=== PATIENT | male | born 1950 | race African-American/Black ===

== ENCOUNTER 2019-09-25 10:38 | Inpatient (IN) | payer BC, MEDICAID ==
[~2019-09-25] VITALS: Ht 177.8 cm; Wt 102.1 kg
[2019-09-25 11:05] VITALS: BP 126/88
--- NOTE | 2019-09-25 11:05 | NUR ---
ED Nurse Note: Pt walked into ED from home c/o right groin pain that has become worse in the past month. Pt has hx of right sided hernia repair in 2018 and prostate surgery in may, 2019. Pt states pain is 10/10, sharp in nature and nonradiating. Pt also reports increased urination and incontience. Pt states "he drips urine when he walks". Pt is aaox4, ambulatory with steady gait, no respiratory or cardiac distress noted. Pt placed on desk monitor. Safety measures in place, will continue to monitor.
--- NOTE | 2019-09-25 11:30 | NUR ---
ED Nurse Note: Pt blood and urine specimen sent to lab.
[2019-09-25 11:44] LABS: BASOPHILS % (AUTO) 0.9 % (0.0-2.0); HEMATOCRIT 42.7 % (42.0-52.0); HEMOGLOBIN 13.4 G/DL (14.2-18.0); LYMPHOCYTES % (AUTO) 16.1 % (20.0-45.0); MEAN CORPUSCULAR VOLUME 89 FL (80-99); MONOCYTES % (AUTO) 7.1 % (1.0-10.0); NEUTROPHILS % (AUTO) 69.9 % (45.0-75.0); PLATELET COUNT 210 K/UL (150-450); RED BLOOD COUNT 4.82 M/UL (4.70-6.10); WHITE BLOOD COUNT 4.2 K/UL (4.8-10.8)
[2019-09-25 11:45] LABS: APPEARANCE,URINE CLEAR; BILIRUBIN, URINE NEGATIVE (NEGATIVE); COLOR,URINE YELLOW; GLUCOSE, URINE (UA) NEGATIVE (NEGATIVE); KETONES,URINE NEGATIVE (NEGATIVE); LEUKOCYTE ESTERASE ,URINE 1+ (NEGATIVE); NITRITE,URINE NEGATIVE (NEGATIVE); PH,URINE 5 (4.5-8.0); PROTEIN,URINE NEGATIVE (NEGATIVE); UROBILINOGEN,URINE 4 MG/DL (0.0-1.0)
--- NOTE | 2019-09-25 11:45 | NUR ---
ED Nurse Note: Patient taken to CT scan in wheelchair accompanied by transporter.
[2019-09-25 11:51] LABS: INR 0.9 (0.9-1.1)
[2019-09-25 12:00] LABS: ANION GAP 5 mmol/L (5-15); BLOOD UREA NITROGEN 23 mg/dL (7-18); CALCIUM 9.1 MG/DL (8.5-10.1); CARBON DIOXIDE 31 MMOL/L (21-32); CHLORIDE 104 MMOL/L (98-107); CREATININE 0.8 MG/DL (0.55-1.30); POTASSIUM 4.4 MMOL/L (3.5-5.1); SODIUM 139 MMOL/L (136-145)
[2019-09-25 12:04] LABS: ALANINE AMINOTRANSFERASE 34 U/L (12-78); ALBUMIN 3.7 G/DL (3.4-5.0); ALKALINE PHOSPHATASE 150 U/L (46-116); ASPARTATE AMINO TRANSFERASE 23 U/L (15-37); BILIRUBIN,TOTAL 0.7 MG/DL (0.2-1.0)
--- NOTE | 2019-09-25 12:18 | NUR ---
ED Nurse Note: [facility] returned to ED. [facility].
--- NOTE | 2019-09-25 12:30 | NUR ---
ED Nurse Note: Spoke with pharmacist at pt [facility] as listed on chart. Attempted to obtain pt medication hx. Pharmacist dictated medications listed in chart, but pt states he takes more medication than what is noted.
[2019-09-25] MEDS ORDERED: OMEGA-3 ACID ETH1 GM PO (12:46)
[2019-09-25] MEDS ORDERED: ABILIFY10 MG ORAL (12:46)
[2019-09-25] MEDS ORDERED: IBUPROFEN600 MG ORAL (12:53)
[2019-09-25] MEDS ORDERED: FLOMAX0.4 MG ORAL (12:53)
[2019-09-25] MEDS ORDERED: MIRTAZAPINE15 M3 ORAL (12:53)
--- NOTE | 2019-09-25 13:33 | NUR ---
ED Nurse Note: Report given to SOFIA Serrato.
--- NOTE | 2019-09-25 13:46 | Emergency Room Report ---
History of Present Illness General Chief Complaint: General Complaint Source: Patient Present Illness HPI Patient has a history of multiple surgeries including prostate surgery and inguinal hernia repair. Patient returns to the emergency department today complaining of worsening abdominal pain has progressively become over the last week. He denies any nausea vomiting denies any fever chest pain shortness of breath. No other complaints are noted. Seems noted to be moderate to severe. Patient's primary care physician is Dr. Edward Broderick advised patient come to emergency room primary for further evaluation. Symptoms noted to be moderate. No other modifying factors. No other associated signs and symptoms. No other complaints were noted. 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 Hx Gastrointestinal Problems: Yes - hernia repair surgery, prostate surgery Review of Systems All Other Systems: negative except mentioned in HPI Physical Exam Vital Signs Date Time Temp Pulse Resp B/P (MAP) Pulse Ox O2 Delivery O2 Flow Rate FiO2 09/25/19 10:45 97.3 58 20 126/88 (101) 95 Room Air Sp02 EP Interpretation: reviewed, normal General Appearance: normal inspection, well appearing, no apparent distress, alert Head: atraumatic Eyes: bilateral eye normal inspection ENT: normal ENT inspection, hearing grossly normal, normal voice Neck: normal inspection, full range of motion, supple, no bony tend Respiratory: normal inspection, lungs clear, normal breath sounds, no respiratory distress, no retraction, no wheezing Cardiovascular #1: regular rate, rhythm, no edema Gastrointestinal: normal inspection, normal bowel sounds, non tender, soft, no guarding, no hernia Genitourinary: no CVA tenderness Musculoskeletal: normal inspection, back normal, normal range of motion Neurologic: alert, responsive, speech normal, normal inspection Psychiatric: normal inspection, judgement/insight normal, mood/affect normal Medical Decision Making Diagnostic Impression: Primary Impression: Abdominal pain Additional Impression: Ileitis ER Course Patient presented emergency department today complaining of abdominal pain. Differential diagnosis include obstruction, infection, nonspecific pain just to name a few.. Given the severity of the patient's presentation I felt this is a highly complex patient. This patient required extensive workup. Patient's laboratory work-up was not impressive. CT scan however show evidence of ileitis. Given patient's pain complicated history I discussed this case with Dr. Broderick He felt the patient required admission for monitoring, repeated exams. Will admit the patient to Dr. Broderick service for further management. The Labs Test 09/25/19 11:25 White Blood Count 4.2 K/UL (4.8-10.8) Red Blood Count 4.82 M/UL (4.70-6.10) Hemoglobin 13.4 G/DL (14.2-18.0) Hematocrit 42.7 % (42.0-52.0) Mean Corpuscular Volume 89 FL (80-99) Mean Corpuscular Hemoglobin 27.9 PG (27.0-31.0) Mean Corpuscular Hemoglobin Concent 31.5 G/DL (32.0-36.0) Red Cell Distribution Width 12.0 % (11.6-14.8) Platelet Count 210 K/UL (150-450) Mean Platelet Volume 7.8 FL (6.5-10.1) Neutrophils (%) (Auto) 69.9 % (45.0-75.0) Lymphocytes (%) (Auto) 16.1 % (20.0-45.0) Monocytes (%) (Auto) 7.1 % (1.0-10.0) Eosinophils (%) (Auto) 6.0 % (0.0-3.0) Basophils (%) (Auto) 0.9 % (0.0-2.0) Prothrombin Time 9.8 SEC (9.30-11.50) Prothromb Time International Ratio 0.9 (0.9-1.1) Activated Partial Thromboplast Time 26 SEC (23-33) Urine Color Yellow Urine Appearance Clear Urine pH 5 (4.5-8.0) Urine Specific [place] 1.020 (1.005-1.035) Urine Protein Negative (NEGATIVE) Urine Glucose (UA) Negative (NEGATIVE) Urine Ketones Negative (NEGATIVE) Urine Blood Negative (NEGATIVE) Urine Nitrite Negative (NEGATIVE) Urine Bilirubin Negative (NEGATIVE) Urine Urobilinogen 4 MG/DL (0.0-1.0) Urine Leukocyte Esterase 1+ (NEGATIVE) Urine RBC 0 /HPF (0 - 0) Urine WBC 2-4 /HPF (0 - 0) Urine Squamous Epithelial Cells Occasional /LPF Urine Bacteria Occasional /HPF (NONE) Urine Mucus Occasional /LPF Sodium Level 139 MMOL/L (136-145) Potassium Level 4.4 MMOL/L (3.5-5.1) Chloride Level 104 MMOL/L (98-107) Carbon Dioxide Level 31 MMOL/L (21-32) Anion Gap 5 mmol/L (5-15) Blood Urea Nitrogen 23 mg/dL (7-18) Creatinine 0.8 MG/DL (0.55-1.30) Estimat Glomerular Filtration Rate > 60 mL/min (>60) Glucose Level 121 MG/DL (74-106) Calcium Level 9.1 MG/DL (8.5-10.1) Total Bilirubin 0.7 MG/DL (0.2-1.0) Aspartate Amino Transf (AST/SGOT) 23 U/L (15-37) Alanine Aminotransferase (ALT/SGPT) 34 U/L (12-78) Alkaline Phosphatase 150 U/L (46-116) Troponin I 0.000 ng/mL (0.000-0.056) Total Protein 7.3 G/DL (6.4-8.2) Albumin 3.7 G/DL (3.4-5.0) Globulin 3.6 g/dL Albumin/Globulin Ratio 1.0 (1.0-2.7) Lipase 110 U/L (73-393) CT/MRI/US Diagnostic Results CT/MRI/US Diagnostic Results : Imaging Test Ordered: ct abd pelv Impression Mild wall thickening throughout the distal and terminal ileum. Right inguinal hernia. Cystic left mid kidney. Last Vital Signs Date Time Temp Pulse Resp B/P (MAP) Pulse Ox O2 Delivery O2 Flow Rate FiO2 09/25/19 11:05 58 20 Room Air 09/25/19 11:05 97.3 126/88 95 Status: improved Disposition: ADMITTED INPATIENT Condition: Serious Referrals: NON PHYSICIAN (PCP) Kg Humphrey MD Sep 25, 2019 13:46
--- NOTE | 2019-09-25 14:05 | NUR ---
ED Nurse Note: Pt taken to medsurg floor by RN via wheelchair. Vss as charted. No acute distress noted.
--- NOTE | 2019-09-25 14:15 | NUR ---
NURSE NOTES: Patient on floor. Vitals stable. Awaiting orders.
--- NOTE | 2019-09-25 15:02 | Diagnostic Imaging Report ---
Indication: Abdominal pain Technique: CT of the abdomen and pelvis utilizing automated exposure control without intravenous contrast. Axial, sagittal and coronal reformats presented. CT dose: Total DLP 2543.7 mGycm; CTDI vol 42.4 mGy Comparison: None Findings: Please note that evaluation of the abdominal and pelvic viscera and vascular structures is limited without the use of intravenous and oral contrast. Within these limitations the following observations are made: Bilateral dependent atelectatic changes noted in the lung bases. Mild scarring or atelectasis is noted in the anterior middle lobe. Heart size within normal limits. No pericardial effusion. Coronary arterial calcifications are noted. Hepatic contour is smooth. There is some focal low attenuation along the falciform ligament most likely representing focal fatty infiltration. There is a 1.5 cm low-attenuation lesion in the hepatic dome which may represent a cyst or hemangioma although other etiologies not excluded. Noncontrast evaluation of the spleen, adrenal glands and pancreas unremarkable. There is a low-attenuation lesion in the midpole the left kidney which may represent a cyst. There is no hydronephrosis or urinary tract stone. No perinephric stranding. There is apparent thickening of the wall of the urinary bladder which may be related to underdistention. Prostate appears normal in size. Some possible low attenuation nodules are suggested in the prostate. There is no free intraperitoneal air or fluid. There is colonic diverticulosis without evidence to suggest acute diverticulitis. There is no evidence of small bowel obstruction. Appendix is normal in caliber. No periappendiceal inflammatory changes. Equivocal wall thickening of some distal ileal loops which may be related to a mild enteritis versus artifact from underdistention. No associated inflammatory stranding within the mesentery. The abdominal aorta is tortuous but normal in caliber with overall mild atherosclerotic calcification. No pathologically enlarged lymphadenopathy. There is a tiny fat-containing umbilical hernia and small fat-containing right inguinal hernia. A scar is noted in the left inguinal region which may suggest prior inguinal hernia repair. There are degenerative changes in the spine with vacuum disc phenomenon at L4-L5. No acute fractures identified. IMPRESSION: Limited exam without intravenous and oral contrast. Within these limitations: * Equivocal wall thickening of distal ileal loops which may be related to a mild enteritis or related to artifact from underdistention. Correlate clinically. * Diverticulosis without evidence of acute diverticulitis. * Bladder wall thickening possibly related to underdistention. Correlation with urinalysis recommended to exclude cystitis. * Possible low attenuation nodules in the prostate. Correlation with prostate exam and PSA recommended. * Low-attenuation lesions in the left kidney and hepatic dome which may represent cysts. Additional findings as above. Salient findings correspond with the preliminary report. The CT scanner at [facility] is accredited by the [employer] and the scans are performed using protocols designed to limit radiation exposure to as low as reasonably achievable to attain images of sufficient resolution adequate for diagnostic evaluation.
[2019-09-25 15:59] VITALS: BP 151/99
[2019-09-25] MEDS: Albuterol/Ipratropium 3ml neb HHN SCH ×2 (19:17→23:10)
--- NOTE | 2019-09-25 19:19 | NUR ---
HAND-OFF: Report given to SOFIA Campos.
--- NOTE | 2019-09-25 19:30 | NUR ---
NURSE NOTES: Received patient in no apparent distress. A&OX4. IV site patent and intact. Bed in lowest position. Call light within reach. Will continue to monitor.
[2019-09-25 20:00] VITALS: BP 123/85
--- NOTE | 2019-09-25 23:31 | History and Physical Report ---
DATE OF ADMISSION: 09/25/2019 HISTORY OF PRESENT ILLNESS: The patient is a 69-year-old male, came with abdominal pain, acute COPD, hypertension, and complaining also of urinary incontinency. PAST MEDICAL HISTORY: Significant for hypertension, borderline diabetes, overweight, history of BPH, and urinary incontinency. PAST SURGICAL HISTORY: He is . MEDICATIONS: See the list. ALLERGIES: NKA. FAMILY HISTORY: Noncontributory. SOCIAL HISTORY: Lives at home. PHYSICAL EXAMINATION: GENERAL: This is an elderly male who is currently in bed, complaining of abdominal pain, right inguinal area. VITAL SIGNS: Blood pressure is 130/70, pulse 84, respirations 18, no fever. SKIN: Good skin turgor. HEENT: NAD. CHEST: Bilaterally clear. CARDIOVASCULAR: Regular rhythm. No gallop. No murmur. ABDOMEN: Soft. Positive bowel sounds. Nontender. He has right inguinal area tenderness. GENITOURINARY: Deferred. LABORATORY DATA: White counts are normal. ASSESSMENT: 1. Abdominal pain. 2. Acute COPD. 3. Hypertension. 4. History of BPH. 5. Urinary incontinency. PLAN: We will add IV Solu-Medrol and bronchodilator treatments. Consider Surgery consult. Edward Broderick M.D. DR: LISA JOB#: [id number] CC:
[2019-09-26] VITALS (7 sets, daily range): BP systolic 122–150; BP diastolic 84–100
[2019-09-26] MEDS: Albuterol/Ipratropium 3ml neb HHN SCH ×6 (03:48→23:26)
--- NOTE | 2019-09-26 06:34 | NUR ---
NURSE NOTES: Call and left message to Dr. Clement for Patient's abdominal pain.
--- NOTE | 2019-09-26 07:22 | NUR ---
HAND-OFF: Report given to Saira BLACK.
--- NOTE | 2019-09-26 07:51 | NUR ---
NURSE NOTES: received report from SOFIA Riggins. patient in bed. alert, oriented. verbally responsive. no respiratory distress noted. no c/o pain at this time. IV on LAC running 1/2 ns @75/hr.IV sited intact. CXR needs to be taken. bed in the lowest position and locked. call light within reach. will continue to provide plan of care.
[2019-09-26] MEDS: Levofloxacin 500mg tab ORAL SCH (08:14)
[2019-09-26] MEDS: Solu-MEDROL 40mg Inj IVP SCH (08:14)
[2019-09-26] MEDS: Pantoprazole Inj IVP SCH (08:14)
--- NOTE | 2019-09-26 15:06 | Consultation ---
History of Present Illness General Date patient seen: Sep 26, 2019 Reason for Hospitalization: General Complaint Present Illness HPI 69 year old male with history of multiple surgeries including prostate surgery and inguinal hernia repair that presents to the emergency department at [facility] complaining of worsening abdominal pain has progressively become over the last week. He denies any nausea vomiting denies any fever chest pain shortness of breath. No other complaints are noted. Seems noted to be moderate to severe. Symptoms noted to be moderate. No other modifying factors. No other associated signs and symptoms. No other complaints were noted. Patient states that he initially had his right inguinal hernia repaired prior as well as a left inguinal hernia repair prior. Cannot recall exact dates but states his left side was many years ago and right side more recently. States he has been having groin pain feeling discomfort in the area more on the right than the left. States he is gone to outside facility before including a specialist near/ across street from [facility] who had told him he needs to have his right inguinal hernia re-repaired. Passing flatus and having bowel movements. Tolerating diet. Pain described as a 10 out of 10 discomfort yet he is moving around comfortably. Labs okay. CT noted. Admitted for work-up care and management. Surgery called to evaluate and assist with care. Patient seen, patient evaluated, chart reviewed. Allergies: Coded Allergies: No Known Allergies (Unverified , 09/25/19) Medication History Scheduled Aripiprazole* (Abilify*), 10 MG ORAL DAILY, (Reported) Ibuprofen* (Motrin*), 600 MG ORAL FOUR TIMES A DAY, (Reported) Mirtazapine* (Mirtazapine*), 15 MG ORAL BEDTIME, (Reported) Thornton-3 Acid Ethyl Esters (Thornton-3 Acid Ethyl Esters), 1 GM PO QHS, (Reported) Tamsulosin HCl (Flomax), 0.4 MG ORAL DAILY, (Reported) Patient History History Provided By: Patient, Medical Record, PMD Healthcare decision maker Resuscitation status Full Code Advanced Directive on File No Past Medical/Surgical History Past Medical/Surgical History: (1) Ileitis (2) Abdominal pain Review of Systems Review of Symptoms General ROS: no weight loss or fever Psychological ROS: no depression or mood changes, no memory loss Ophthalmic ROS: no visual changes or eye irritation ENT ROS: no nasal congestion, hearing loss, dizziness Allergy and Immunology ROS: no allergic symptoms or urticaria Hematological and Lymphatic ROS: no swollen glands, unusual bleeding or bruising Endocrine ROS: no polyuria, polydipsia, weight changes, temperature intolerance Respiratory ROS: no cough, shortness of breath, or wheezing Cardiovascular ROS: no chest pain or dyspnea on exertion Gastrointestinal ROS: abdominal pain, bright red blood in stool. Musculoskeletal ROS: no myalgias or arthralgias Neurological ROS: no TIA or stroke symptoms Dermatological ROS: no new or changing skin lesions, rashes or pruritis Physical Exam Physical Exam General appearance: alert, cooperative, no distress, appears stated age Head: Normocephalic, without obvious abnormality, atraumatic Eyes: conjunctivae/corneas clear. PERRL, EOM's intact. Fundi benign Throat: Lips, mucosa, and tongue normal. Teeth and gums normal Neck: supple, symmetrical, trachea midline, no adenopathy, thyroid: not enlarged, symmetric, no tenderness/mass/nodules, no carotid bruit and no JVD Lungs: clear to auscultation bilaterally Heart: regular rate and rhythm, S1, S2 normal, no murmur, click, rub or gallop Abdomen: soft, non-tender. Bowel sounds normal. No masses, no organomegaly Extremities: extremities normal, atraumatic, no cyanosis or edema Pulses: 2+ and symmetric Skin: Skin color, texture, turgor normal. No rashes or lesions Neurologic: Grossly normal Patient identified to have incision on both the right and left groin both well- healed from prior hernia repairs. No hernias can be actively reproduced were identified on examination. Discomfort in palpation of any portion of the patient's abdomen or pelvis. Last 24 Hour Vital Signs Date Time Temp Pulse Resp B/P (MAP) Pulse Ox O2 Delivery O2 Flow Rate FiO2 09/26/19 12:00 97.7 86 20 139/99 (112) 94 09/26/19 09:00 Room Air 09/26/19 08:19 75 20 99 Room Air 21 70 20 95 09/26/19 08:00 97.9 77 20 150/93 (112) 95 09/26/19 04:00 97.7 58 20 136/100 (112) 97 09/26/19 00:00 97.5 66 20 124/84 (97) 95 09/25/19 23:10 72 18 99 Room Air 65 18 95 09/25/19 21:00 Room Air 09/25/19 20:00 97.2 74 20 123/85 (98) 95 09/25/19 19:19 70 18 99 Room Air 68 18 96 09/25/19 15:59 97.3 66 21 151/99 (116) 95 09/25/19 15:26 Room Air Intake and Output 09/25/19 09/26/19 19:00 07:00 Intake Total 575 ml 1860 ml Output Total 1800 ml Balance 575 ml 60 ml Intake Oral 500 ml 960 ml IV Total 75 ml 900 ml Output Urine Total 1800 ml # Voids 1 1 Height (Feet): 5 Height (Inches): 10.00 Weight (Pounds): 225 Medications Current Medications Medications (Trade) Dose Ordered Sig/Zoë Route PRN Reason Start Time Stop Time Status Last Admin Dose Admin Albuterol/ Ipratropium (Albuterol/ Ipratropium) 3 ml Q4HRT HHN 09/25/19 19:00 09/30/19 18:59 09/26/19 08:07 Levofloxacin (Levaquin) 500 mg DAILY ORAL 09/26/19 09:00 10/03/19 08:59 09/26/19 08:14 Methylprednisolone Sodium Succinate (Solu-MEDROL) 40 mg DAILY IVP 09/26/19 09:00 10/26/19 08:59 09/26/19 08:14 Pantoprazole (Protonix) 40 mg DAILY IVP 09/26/19 09:00 10/26/19 08:59 09/26/19 08:14 Sodium Chloride 1,000 ml @ 75 mls/hr [id number] IV 09/25/19 15:45 10/25/19 15:44 09/26/19 05:10 Tamsulosin HCl (Flomax) 0.4 mg BEDTIME ORAL 09/26/19 21:00 10/26/19 20:59 Assessment/Plan Problem List: (1) Abdominal pain Assessment & Plan: 69-year-old male with abdominal pain. States he is got pain all over but mainly believes it is on the right lower portion of his abdomen and believes it is related to his hernia which another physician I told him needs to be repaired. Patient is had hernia repair in the past. On evaluation today no hernia is palpable but CT reviewed and there is a small fat- containing hernia on the right side without any acute active inflammatory infectious process. Labs okay. Afebrile, hemodynamic stable. No nausea vomiting fever chills. Remainder the abdominal exam is benign. No acute surgical intervention indicated recommended. Patient now concerned more about his frequent voiding wants to see a urologist as well as in the hospital. I expressed patient will discuss with primary care physician for evaluation by urology as well. Patient has a stable potentially recurrent small fat-containing right inguinal hernia which can be repaired electively. No incarceration obstruction or other urgent/emergent intervention necessary at this time. Okay for diet from surgical standpoint. Will follow with recommendations and serial exams. Thank you for let me participate in patient's care. urology eval AM labs AM KUB ICD Codes: R10.9 - Unspecified abdominal pain SNOMED: 86290803 (2) Ileitis Assessment & Plan: Bilateral dependent atelectatic changes noted in the lung bases. Mild scarring or atelectasis is noted in the anterior middle lobe. Heart size within normal limits. No pericardial effusion. Coronary arterial calcifications are noted. Hepatic contour is smooth. There is some focal low attenuation along the falciform ligament most likely representing focal fatty infiltration. There is a 1.5 cm low-attenuation lesion in the hepatic dome which may represent a cyst or hemangioma although other etiologies not excluded. Noncontrast evaluation of the spleen, adrenal glands and pancreas unremarkable. There is a low-attenuation lesion in the midpole the left kidney which may represent a cyst. There is no hydronephrosis or urinary tract stone. No perinephric stranding. There is apparent thickening of the wall of the urinary bladder which may be related to underdistention. Prostate appears normal in size. Some possible low attenuation nodules are suggested in the prostate. There is no free intraperitoneal air or fluid. There is colonic diverticulosis without evidence to suggest acute diverticulitis. There is no evidence of small bowel obstruction. Appendix is normal in caliber. No periappendiceal inflammatory changes. Equivocal wall thickening of some distal ileal loops which may be related to a mild enteritis versus artifact from underdistention. No associated inflammatory stranding within the mesentery. The abdominal aorta is tortuous but normal in caliber with overall mild atherosclerotic calcification. No pathologically enlarged lymphadenopathy. There is a tiny fat-containing umbilical hernia and small fat-containing right inguinal hernia. A scar is noted in the left inguinal region which may suggest prior inguinal hernia repair. There are degenerative changes in the spine with vacuum disc phenomenon at L4-L5. No acute fractures identified. IMPRESSION: Limited exam without intravenous and oral contrast. Within these limitations: * Equivocal wall thickening of distal ileal loops which may be related to a mild enteritis or related to artifact from underdistention. Correlate clinically. * Diverticulosis without evidence of acute diverticulitis. * Bladder wall thickening possibly related to underdistention. Correlation with urinalysis recommended to exclude cystitis. * Possible low attenuation nodules in the prostate. Correlation with prostate exam and PSA recommended. * Low-attenuation lesions in the left kidney and hepatic dome which may represent cysts. ICD Codes: K52.9 - Noninfective gastroenteritis and colitis, unspecified SNOMED: [id number] Elmer Clement Sep 26, 2019 15:06
--- NOTE | 2019-09-26 17:03 | NUR ---
NURSE NOTES: patient discharged to [facility] with stable condition via ambulance. no respiratory distress noted. no c/o pain a this time. RN provided dc packet to the ambulance personnel. no belongings. RN removed IV and ID band. sacral with DTI and both heels with redness picture were taken. Addendum: 09/26/19 at 1706 by KARLA MADDEN RN Wrong patient.
--- NOTE | 2019-09-26 17:15 | NUR ---
CASE MANAGEMENT: INITIAL REVIEW 69YR OLD MALE FROM HOME CC: GENERAL COMPLAINT SI: ABD PAIN . ILEITIS . UTI 97.4 58 20 126/88 95% ON RA WBC 4.2 BUN 23 BG 121 ALS PHOS 150 IS: ABD CT : 4E MED SURG PLAN: SURG CONSULT FOR PROSTATE SURG AND INGUINAL HERNIA REPAIR CASE MANAGEMENT: REVIEW 09/26/19 SI: ABD PAIN . ILEITIS . UTI . ACUTE COPD . HTN . URINARY INCONTINENCY 97.9 77 20 150/93 95% ON RA WBC 4.2 BUN 23 BG 121 ALS PHOS 150 IS: IVF NS @75ML/HR IV SOLU-MEDROL 40MG QD LEVAQUIN PO QD ALBUTEROL HHN Q4HR IV PROTONIX QD : 4E MED SURG PLAN: ABD XRAY CXRAY
--- NOTE | 2019-09-26 19:09 | NUR ---
HAND-OFF: Report given to SOFIA Riggins.
--- NOTE | 2019-09-26 19:30 | NUR ---
NURSE NOTES: Received patient in no apparent distress. A&OX4. IV site patent and intact. Bed in lowest position. Call light within reach. Will continue to monitor.
--- NOTE | 2019-09-26 19:43 | Diagnostic Imaging Report ---
Indication: Shortness of breath Technique: One view of the chest Comparison: none Findings: Lungs and pleural spaces are clear. Heart size is normal. Aorta is tortuous Impression: No acute process
[2019-09-26] MEDS: Tamsulosin 0.4mg cap ORAL SCH (20:19)
[2019-09-27] VITALS: BP 130/78
[2019-09-27] MEDS: Albuterol/Ipratropium 3ml neb HHN SCH ×6 (03:35→23:50)
[2019-09-27 04:00] VITALS: BP 151/86
--- NOTE | 2019-09-27 07:11 | NUR ---
HAND-OFF: Report given to Saira BLACK.
--- NOTE | 2019-09-27 07:15 | NUR ---
NURSE NOTES: received report from SOFIA Riggins. patient in bed. alert. oriented. verbally responsive. no c/o pain at this time. IV on LAC 20 running 1/2ns@75. xray abd will be taken today. skin intact. bed in the lowest position and locked. call light within reach. will continue to provide plan of care.
[2019-09-27 07:31] LABS: BASOPHILS % (AUTO) 0.8 % (0.0-2.0); EOSINOPHILS % (AUTO) 3.4 % (0.0-3.0); HEMATOCRIT 41.1 % (42.0-52.0); HEMOGLOBIN 13.3 G/DL (14.2-18.0); LYMPHOCYTES % (AUTO) 16.4 % (20.0-45.0); MEAN CORPUSCULAR VOLUME 88 FL (80-99); MONOCYTES % (AUTO) 7.8 % (1.0-10.0); NEUTROPHILS % (AUTO) 71.7 % (45.0-75.0); PLATELET COUNT 238 K/UL (150-450); RED BLOOD COUNT 4.67 M/UL (4.70-6.10); RED CELL DISTRIBUTION WIDTH 12.1 % (11.6-14.8); WHITE BLOOD COUNT 5.7 K/UL (4.8-10.8)
[2019-09-27 07:53] LABS: ALANINE AMINOTRANSFERASE 28 U/L (12-78); ALBUMIN 3.4 G/DL (3.4-5.0); ALBUMIN/GLOBULIN RATIO 0.8 (1.0-2.7); ALKALINE PHOSPHATASE 135 U/L (46-116); AMYLASE 148 U/L (25-115); ANION GAP 6 mmol/L (5-15); ASPARTATE AMINO TRANSFERASE 18 U/L (15-37); BILIRUBIN,TOTAL 0.6 MG/DL (0.2-1.0); BLOOD UREA NITROGEN 18 mg/dL (7-18); CALCIUM 9.1 MG/DL (8.5-10.1); CARBON DIOXIDE 29 MMOL/L (21-32); CHLORIDE 106 MMOL/L (98-107); CREATININE 0.8 MG/DL (0.55-1.30); POTASSIUM 4.4 MMOL/L (3.5-5.1); SODIUM 141 MMOL/L (136-145)
[2019-09-27 07:57] LABS: INR 0.9 (0.9-1.1)
[2019-09-27 08:00] VITALS: BP 148/98
[2019-09-27] MEDS: Solu-MEDROL 40mg Inj IVP SCH (08:02)
[2019-09-27] MEDS: Pantoprazole Inj IVP SCH (08:02)
[2019-09-27] MEDS: Levofloxacin 500mg tab ORAL SCH (08:14)
--- NOTE | 2019-09-27 09:24 | NUR ---
NURSE NOTES: patient hx of HTN, BP 151/8670@0400, 148/98/84@0800. no symptomatic. no home medication for HTN. RN notified Dr. Broderick and received order of Norvasc 5mg PO Daily. order noted and carried out.
[2019-09-27 12:00] VITALS: BP 130/82
--- NOTE | 2019-09-27 12:44 | NUR ---
CHARGE NURSE NOTE: Lipase 614, amylase 148. notified.
--- NOTE | 2019-09-27 14:02 | Diagnostic Imaging Report ---
Indication: Abdominal pain Technique: Supine view of the abdomen Comparison: none Findings: Considerable stool is seen in the rectum and colon. Bowel gas pattern is otherwise unremarkable. No gaseous distention of large or small bowel. No masses or unusual calcifications. There are degenerative proliferative changes of the pelvis and degenerative changes of the left hip joint Impression: No acute process Possible constipation
[2019-09-27 16:00] VITALS: BP 136/99
--- NOTE | 2019-09-27 17:43 | NUR ---
CASE MANAGEMENT:REVIEW 09/27/19 SI: ILEITIS. ABDOMINAL PAIN 97.6 82 20 136/99 98% ON RA H/H-13.3/41.1 AMYLASE+148 LIPASE+614 IS; IV SOLUMEDROL PO QD DUONEB HHN Q4HRS RTC LEVAQUIN PO QD NORVASC PO QD IV PROTONIX QD : MED/SURG [facility]
--- NOTE | 2019-09-27 19:07 | NUR ---
HAND-OFF: Report given to SOFIA Cesar and SOFIA [place].
--- NOTE | 2019-09-27 19:30 | NUR ---
NURSE NOTES: Received pt from SOFIA Chávez. Pt awake, AAOx4, on room air, complains of mild abdominal pain, reported small BM 12/20, bowel sounds hypoactive. No skin issues, pt is ambulatory. IV left hand 22g running 1/2 NS at 75c/hr, patent and intact. Bed is low and locked, side rails are up x2, bed alarm active, and call light is in reach. Will continue to monitor.
[2019-09-27 20:00] VITALS: BP 135/92
[2019-09-27] MEDS: Tamsulosin 0.4mg cap ORAL SCH (20:54)
--- NOTE | 2019-09-27 21:48 | Surgery Progress Note ---
Surgery Progress Note Subjective Additional Comments no acute events stable comfortable still with pain labs stable kub noted Objective Last 24 Hour Vital Signs Date Time Temp Pulse Resp B/P (MAP) Pulse Ox O2 Delivery O2 Flow Rate FiO2 09/27/19 20:04 74 18 100 Room Air 21 70 18 97 09/27/19 20:00 97.5 81 18 135/92 (106) 98 09/27/19 16:00 97.6 82 20 136/99 (111) 98 09/27/19 15:17 92 18 98 Room Air 21 89 18 94 09/27/19 12:00 97.6 97 20 130/82 (98) 96 09/27/19 11:01 85 17 99 Room Air 21 82 16 95 09/27/19 09:00 Room Air 09/27/19 08:00 97.7 84 20 148/98 (115) 97 09/27/19 07:20 89 18 98 Room Air 21 86 18 94 09/27/19 04:00 97.9 70 20 151/86 (107) 96 09/27/19 03:35 Room Air 21 09/27/19 00:00 98.2 82 20 130/78 (95) 96 09/26/19 23:26 Room Air 21 I&O Intake and Output 09/26/19 09/27/19 19:00 07:00 Intake Total 1400 ml 900 ml Output Total 1600 ml 1300 ml Balance -200 ml -400 ml Intake Oral 500 ml IV Total 900 ml 900 ml Output Urine Total 1600 ml 1300 ml Cardiovascular: RSR Respiratory: clear Abdomen: soft, non-tender, present bowel sounds, non-distended Extremities: no edema, no tenderness, no cyanosis Laboratory Tests Test 09/27/19 06:15 White Blood Count 5.7 K/UL (4.8-10.8) Red Blood Count 4.67 M/UL (4.70-6.10) L Hemoglobin 13.3 G/DL (14.2-18.0) L Hematocrit 41.1 % (42.0-52.0) L Mean Corpuscular Volume 88 FL (80-99) Mean Corpuscular Hemoglobin 28.4 PG (27.0-31.0) Mean Corpuscular Hemoglobin Concent 32.3 G/DL (32.0-36.0) Red Cell Distribution Width 12.1 % (11.6-14.8) Platelet Count 238 K/UL (150-450) Mean Platelet Volume 7.6 FL (6.5-10.1) Neutrophils (%) (Auto) 71.7 % (45.0-75.0) Lymphocytes (%) (Auto) 16.4 % (20.0-45.0) L Monocytes (%) (Auto) 7.8 % (1.0-10.0) Eosinophils (%) (Auto) 3.4 % (0.0-3.0) H Basophils (%) (Auto) 0.8 % (0.0-2.0) Erythrocyte Sedimentation Rate 14 MM/HR (0-20) Prothrombin Time 10.0 SEC (9.30-11.50) Prothromb Time International Ratio 0.9 (0.9-1.1) Activated Partial Thromboplast Time 27 SEC (23-33) Sodium Level 141 MMOL/L (136-145) Potassium Level 4.4 MMOL/L (3.5-5.1) Chloride Level 106 MMOL/L (98-107) Carbon Dioxide Level 29 MMOL/L (21-32) Anion Gap 6 mmol/L (5-15) Blood Urea Nitrogen 18 mg/dL (7-18) Creatinine 0.8 MG/DL (0.55-1.30) Estimat Glomerular Filtration Rate > 60 mL/min (>60) Glucose Level 103 MG/DL (74-106) Calcium Level 9.1 MG/DL (8.5-10.1) Total Bilirubin 0.6 MG/DL (0.2-1.0) Aspartate Amino Transf (AST/SGOT) 18 U/L (15-37) Alanine Aminotransferase (ALT/SGPT) 28 U/L (12-78) Alkaline Phosphatase 135 U/L (46-116) H C-Reactive Protein, Quantitative 0.6 mg/dL (0.00-0.90) Total Protein 7.5 G/DL (6.4-8.2) Albumin 3.4 G/DL (3.4-5.0) Globulin 4.1 g/dL Albumin/Globulin Ratio 0.8 (1.0-2.7) L Amylase Level 148 U/L (25-115) H Lipase 614 U/L (73-393) H Plan Problems: (1) Abdominal pain Assessment & Plan: 69-year-old male with abdominal pain. States he is got pain all over but mainly believes it is on the right lower portion of his abdomen and believes it is related to his hernia which another physician I told him needs to be repaired. Patient is had hernia repair in the past. On evaluation today no hernia is palpable but CT reviewed and there is a small fat- containing hernia on the right side without any acute active inflammatory infectious process. Labs okay. Afebrile, hemodynamic stable. No nausea vomiting fever chills. Remainder the abdominal exam is benign. No acute surgical intervention indicated recommended. Patient now concerned more about his frequent voiding wants to see a urologist as well as in the hospital. I expressed patient will discuss with primary care physician for evaluation by urology as well. Patient has a stable potentially recurrent small fat-containing right inguinal hernia which can be repaired electively. No incarceration obstruction or other urgent/emergent intervention necessary at this time. Okay for diet from surgical standpoint. Will follow with recommendations and serial exams. Thank you for let me participate in patient's care. urology eval possible pain seeking? AM labs (2) Ileitis Assessment & Plan: Bilateral dependent atelectatic changes noted in the lung bases. Mild scarring or atelectasis is noted in the anterior middle lobe. Heart size within normal limits. No pericardial effusion. Coronary arterial calcifications are noted. Hepatic contour is smooth. There is some focal low attenuation along the falciform ligament most likely representing focal fatty infiltration. There is a 1.5 cm low-attenuation lesion in the hepatic dome which may represent a cyst or hemangioma although other etiologies not excluded. Noncontrast evaluation of the spleen, adrenal glands and pancreas unremarkable. There is a low-attenuation lesion in the midpole the left kidney which may represent a cyst. There is no hydronephrosis or urinary tract stone. No perinephric stranding. There is apparent thickening of the wall of the urinary bladder which may be related to underdistention. Prostate appears normal in size. Some possible low attenuation nodules are suggested in the prostate. There is no free intraperitoneal air or fluid. There is colonic diverticulosis without evidence to suggest acute diverticulitis. There is no evidence of small bowel obstruction. Appendix is normal in caliber. No periappendiceal inflammatory changes. Equivocal wall thickening of some distal ileal loops which may be related to a mild enteritis versus artifact from underdistention. No associated inflammatory stranding within the mesentery. The abdominal aorta is tortuous but normal in caliber with overall mild atherosclerotic calcification. No pathologically enlarged lymphadenopathy. There is a tiny fat-containing umbilical hernia and small fat-containing right inguinal hernia. A scar is noted in the left inguinal region which may suggest prior inguinal hernia repair. There are degenerative changes in the spine with vacuum disc phenomenon at L4-L5. No acute fractures identified. IMPRESSION: Limited exam without intravenous and oral contrast. Within these limitations: * Equivocal wall thickening of distal ileal loops which may be related to a mild enteritis or related to artifact from underdistention. Correlate clinically. * Diverticulosis without evidence of acute diverticulitis. * Bladder wall thickening possibly related to underdistention. Correlation with urinalysis recommended to exclude cystitis. * Possible low attenuation nodules in the prostate. Correlation with prostate exam and PSA recommended. * Low-attenuation lesions in the left kidney and hepatic dome which may represent cysts. Elmer Clement Sep 27, 2019 21:48
[2019-09-28] VITALS: BP 142/90
[2019-09-28] MEDS: Albuterol/Ipratropium 3ml neb HHN SCH ×6 (03:16→23:00)
[2019-09-28 04:00] VITALS: BP 137/63
--- NOTE | 2019-09-28 07:41 | NUR ---
HAND-OFF: Report given to SOFIA Otero.
--- NOTE | 2019-09-28 07:55 | NUR ---
NURSE NOTES: Patient awake, alert x4; on room air, no sing of distress and shortness of breath; no sing of chest pain; IV Left-Hand 22G running 75cc; urinal within reach; side rails up x2, breaks engaged, bed at lowest position; call light within reach; will keep monitoring.
[2019-09-28 08:00] VITALS: BP_SYST 114; BP_SYST 135; BP_DIAS 66; BP_DIAS 77
[2019-09-28 08:17] LABS: BASOPHILS % (AUTO) 0.4 % (0.0-2.0); EOSINOPHILS % (AUTO) 3.2 % (0.0-3.0); HEMATOCRIT 40.5 % (42.0-52.0); HEMOGLOBIN 13.1 G/DL (14.2-18.0); LYMPHOCYTES % (AUTO) 14.7 % (20.0-45.0); MEAN CORPUSCULAR VOLUME 89 FL (80-99); MONOCYTES % (AUTO) 7.8 % (1.0-10.0); NEUTROPHILS % (AUTO) 73.8 % (45.0-75.0); PLATELET COUNT 238 K/UL (150-450); RED BLOOD COUNT 4.57 M/UL (4.70-6.10); RED CELL DISTRIBUTION WIDTH 12.5 % (11.6-14.8); WHITE BLOOD COUNT 5.9 K/UL (4.8-10.8)
[2019-09-28] MEDS: Levofloxacin 500mg tab ORAL SCH (08:22)
[2019-09-28] MEDS: Solu-MEDROL 40mg Inj IVP SCH (08:22)
[2019-09-28] MEDS: Pantoprazole Inj IVP SCH (08:23)
[2019-09-28 08:25] LABS: ALANINE AMINOTRANSFERASE 27 U/L (12-78); ALBUMIN 3.4 G/DL (3.4-5.0); ALBUMIN/GLOBULIN RATIO 0.9 (1.0-2.7); ALKALINE PHOSPHATASE 129 U/L (46-116); ANION GAP 7 mmol/L (5-15); ASPARTATE AMINO TRANSFERASE 20 U/L (15-37); BILIRUBIN,TOTAL 0.5 MG/DL (0.2-1.0); BLOOD UREA NITROGEN 17 mg/dL (7-18); CALCIUM 9.1 MG/DL (8.5-10.1); CARBON DIOXIDE 29 MMOL/L (21-32); CHLORIDE 105 MMOL/L (98-107); CREATININE 0.8 MG/DL (0.55-1.30); POTASSIUM 4.3 MMOL/L (3.5-5.1); SODIUM 141 MMOL/L (136-145)
[2019-09-28 12:00] VITALS: BP 117/80
[2019-09-28 16:00] VITALS: BP 130/90
--- NOTE | 2019-09-28 19:30 | NUR ---
NURSE NOTES: RECEIVED PT FROM SOFIA LAWTON. PT IS AWAKE, AAOX4, ON ROOM AIR, DENIES PAIN, NO ACUTE DISTRESS NOTED. IV ON LEFT HAND IS INTACT AND PATENT. BED IS LOCKED AND LOW, BED ALARMS ACTIVE, SIDE RAILS UP X2 AND CALL LIGHT IS WITHIN REACH. WILL CONTINUE TO MONITOR.
--- NOTE | 2019-09-28 19:35 | NUR ---
HAND-OFF: Report given to SOFIA Thomas.
[2019-09-28 20:00] VITALS: BP 126/79
[2019-09-28] MEDS: Tamsulosin 0.4mg cap ORAL SCH (20:54)
--- NOTE | 2019-09-28 21:15 | Progress Note ---
DATE: 09/28/2019 SUBJECTIVE: This is a 69-year-old male currently comfortable. OBJECTIVE: VITAL SIGNS: Stable. CHEST: Bilaterally clear. CARDIOVASCULAR: Irregular rhythm. ABDOMEN: Soft. EXTREMITIES: No CCE. NEUROLOGICAL: No focal deficit. ASSESSMENT: 1. Abdominal pain. 2. Inguinal hernia. 3. Chronic obstructive pulmonary disease. PLAN: Continue current treatment. Surgery is on case. Edward Broderick M.D. DR: ELIZABETH JOB#: [id number] CC:
--- NOTE | 2019-09-28 21:50 | Surgery Progress Note ---
Surgery Progress Note Subjective Symptoms: improved Objective Last 24 Hour Vital Signs Date Time Temp Pulse Resp B/P (MAP) Pulse Ox O2 Delivery O2 Flow Rate FiO2 09/28/19 19:59 79 18 99 Room Air 21 78 18 96 09/28/19 16:00 97.9 89 18 130/90 (103) 97 09/28/19 15:53 79 18 99 Room Air 21 83 18 98 09/28/19 12:00 98.0 75 17 117/80 (92) 100 09/28/19 11:33 80 18 99 Room Air 21 85 18 95 09/28/19 09:00 Room Air 09/28/19 08:22 60 135/77 09/28/19 08:00 98.1 60 17 135/77 (96) 97 09/28/19 07:59 75 18 98 Room Air 21 72 18 96 09/28/19 04:00 96.9 69 19 137/63 (87) 96 09/28/19 03:16 Room Air 21 09/28/19 00:00 97.4 82 18 142/90 (107) 97 09/27/19 23:50 77 18 98 Room Air 21 75 18 94 I&O Intake and Output 09/27/19 09/28/19 19:00 07:00 Intake Total 1740 ml 1665 ml Output Total 2400 ml 1500 ml Balance -660 ml 165 ml Intake Oral 840 ml 840 ml IV Total 900 ml 825 ml Output Urine Total 2400 ml 1500 ml # Voids 1 Cardiovascular: RSR Respiratory: clear Abdomen: soft, non-tender, present bowel sounds Extremities: no edema, no tenderness, no cyanosis Laboratory Tests Test 09/28/19 06:45 White Blood Count 5.9 K/UL (4.8-10.8) Red Blood Count 4.57 M/UL (4.70-6.10) L Hemoglobin 13.1 G/DL (14.2-18.0) L Hematocrit 40.5 % (42.0-52.0) L Mean Corpuscular Volume 89 FL (80-99) Mean Corpuscular Hemoglobin 28.6 PG (27.0-31.0) Mean Corpuscular Hemoglobin Concent 32.3 G/DL (32.0-36.0) Red Cell Distribution Width 12.5 % (11.6-14.8) Platelet Count 238 K/UL (150-450) Mean Platelet Volume 7.4 FL (6.5-10.1) Neutrophils (%) (Auto) 73.8 % (45.0-75.0) Lymphocytes (%) (Auto) 14.7 % (20.0-45.0) L Monocytes (%) (Auto) 7.8 % (1.0-10.0) Eosinophils (%) (Auto) 3.2 % (0.0-3.0) H Basophils (%) (Auto) 0.4 % (0.0-2.0) Sodium Level 141 MMOL/L (136-145) Potassium Level 4.3 MMOL/L (3.5-5.1) Chloride Level 105 MMOL/L (98-107) Carbon Dioxide Level 29 MMOL/L (21-32) Anion Gap 7 mmol/L (5-15) Blood Urea Nitrogen 17 mg/dL (7-18) Creatinine 0.8 MG/DL (0.55-1.30) Estimat Glomerular Filtration Rate > 60 mL/min (>60) Glucose Level 99 MG/DL (74-106) Calcium Level 9.1 MG/DL (8.5-10.1) Total Bilirubin 0.5 MG/DL (0.2-1.0) Aspartate Amino Transf (AST/SGOT) 20 U/L (15-37) Alanine Aminotransferase (ALT/SGPT) 27 U/L (12-78) Alkaline Phosphatase 129 U/L (46-116) H Total Protein 7.2 G/DL (6.4-8.2) Albumin 3.4 G/DL (3.4-5.0) Globulin 3.8 g/dL Albumin/Globulin Ratio 0.9 (1.0-2.7) L Plan Problems: (1) Abdominal pain Assessment & Plan: 69-year-old male with abdominal pain. States he is got pain all over but mainly believes it is on the right lower portion of his abdomen and believes it is related to his hernia which another physician I told him needs to be repaired. Patient is had hernia repair in the past. On evaluation today no hernia is palpable but CT reviewed and there is a small fat- containing hernia on the right side without any acute active inflammatory infectious process. Labs okay. Afebrile, hemodynamic stable. No nausea vomiting fever chills. Remainder the abdominal exam is benign. No acute surgical intervention indicated recommended. Patient now concerned more about his frequent voiding wants to see a urologist as well as in the hospital. I expressed patient will discuss with primary care physician for evaluation by urology as well. Patient has a stable potentially recurrent small fat-containing right inguinal hernia which can be repaired electively. No incarceration obstruction or other urgent/emergent intervention necessary at this time. Okay for diet from surgical standpoint. Will follow with recommendations and serial exams. Thank you for let me participate in patient's care. urology eval possible pain seeking? AM labs (2) Ileitis Assessment & Plan: Bilateral dependent atelectatic changes noted in the lung bases. Mild scarring or atelectasis is noted in the anterior middle lobe. Heart size within normal limits. No pericardial effusion. Coronary arterial calcifications are noted. Hepatic contour is smooth. There is some focal low attenuation along the falciform ligament most likely representing focal fatty infiltration. There is a 1.5 cm low-attenuation lesion in the hepatic dome which may represent a cyst or hemangioma although other etiologies not excluded. Noncontrast evaluation of the spleen, adrenal glands and pancreas unremarkable. There is a low-attenuation lesion in the midpole the left kidney which may represent a cyst. There is no hydronephrosis or urinary tract stone. No perinephric stranding. There is apparent thickening of the wall of the urinary bladder which may be related to underdistention. Prostate appears normal in size. Some possible low attenuation nodules are suggested in the prostate. There is no free intraperitoneal air or fluid. There is colonic diverticulosis without evidence to suggest acute diverticulitis. There is no evidence of small bowel obstruction. Appendix is normal in caliber. No periappendiceal inflammatory changes. Equivocal wall thickening of some distal ileal loops which may be related to a mild enteritis versus artifact from underdistention. No associated inflammatory stranding within the mesentery. The abdominal aorta is tortuous but normal in caliber with overall mild atherosclerotic calcification. No pathologically enlarged lymphadenopathy. There is a tiny fat-containing umbilical hernia and small fat-containing right inguinal hernia. A scar is noted in the left inguinal region which may suggest prior inguinal hernia repair. There are degenerative changes in the spine with vacuum disc phenomenon at L4-L5. No acute fractures identified. IMPRESSION: Limited exam without intravenous and oral contrast. Within these limitations: * Equivocal wall thickening of distal ileal loops which may be related to a mild enteritis or related to artifact from underdistention. Correlate clinically. * Diverticulosis without evidence of acute diverticulitis. * Bladder wall thickening possibly related to underdistention. Correlation with urinalysis recommended to exclude cystitis. * Possible low attenuation nodules in the prostate. Correlation with prostate exam and PSA recommended. * Low-attenuation lesions in the left kidney and hepatic dome which may represent cysts. Elmer Clement Sep 28, 2019 21:50
[2019-09-29] VITALS: BP 118/78
[2019-09-29] MEDS: Albuterol/Ipratropium 3ml neb HHN SCH ×3 (03:30→10:57)
[2019-09-29 04:00] VITALS: BP 132/80
--- NOTE | 2019-09-29 07:39 | NUR ---
NURSE NOTES: Received report from Tali, RN. Patient A&OX4. On room air, no signs of distress or labored breathing. Iv intact, patent, and infusing IV fluids. Bed in lowest position with call light in reach. Will continue with plan of care.
--- NOTE | 2019-09-29 07:57 | NUR ---
HAND-OFF: Report given to SOFIA Jara.
[2019-09-29 08:00] VITALS: BP 139/86
[2019-09-29] MEDS: Solu-MEDROL 40mg Inj IVP SCH (08:25)
[2019-09-29] MEDS: Levofloxacin 500mg tab ORAL SCH (08:25)
[2019-09-29] MEDS: Pantoprazole Inj IVP SCH (08:25)
--- NOTE | 2019-09-29 11:45 | Surgery Progress Note ---
Surgery Progress Note Subjective Symptoms: tolerating diet Additional Comments labs okay exam benign still with lower pelvic pain no n/v/f/c passing flatus BM uop good Objective Last 24 Hour Vital Signs Date Time Temp Pulse Resp B/P (MAP) Pulse Ox O2 Delivery O2 Flow Rate FiO2 09/29/19 10:58 82 18 99 Room Air 21 80 18 96 09/29/19 08:25 74 139/88 09/29/19 04:00 98.4 80 18 132/80 (97) 95 09/29/19 00:00 98.4 83 19 118/78 (91) 99 09/28/19 21:00 Room Air 09/28/19 20:00 99.0 79 19 126/79 (95) 98 09/28/19 19:59 79 18 99 Room Air 21 78 18 96 09/28/19 16:00 97.9 89 18 130/90 (103) 97 09/28/19 15:53 79 18 99 Room Air 21 83 18 98 09/28/19 12:00 98.0 75 17 117/80 (92) 100 I&O Intake and Output 09/28/19 09/29/19 18:59 06:59 Intake Total 1950 ml 2640 ml Output Total 1050 ml Balance 1950 ml 1590 ml Intake Oral 840 ml IV Total 750 ml 600 ml Other 1200 ml 1200 ml Output Urine Total 1050 ml # Voids 1 Cardiovascular: RSR Respiratory: clear Abdomen: soft, flat, non-tender, present bowel sounds, non-distended Extremities: no edema, no tenderness, no cyanosis Plan Problems: (1) Abdominal pain Assessment & Plan: 69-year-old male with abdominal pain. States he is got pain all over but mainly believes it is on the right lower portion of his abdomen and believes it is related to his hernia which another physician I told him needs to be repaired. Patient is had hernia repair in the past. On evaluation today no hernia is palpable but CT reviewed and there is a small fat- containing hernia on the right side without any acute active inflammatory infectious process. Labs okay. Afebrile, hemodynamic stable. No nausea vomiting fever chills. Remainder the abdominal exam is benign. No acute surgical intervention indicated recommended. Patient now concerned more about his frequent voiding wants to see a urologist as well as in the hospital. I expressed patient will discuss with primary care physician for evaluation by urology as well. Patient has a stable potentially recurrent small fat-containing right inguinal hernia which can be repaired electively. No incarceration obstruction or other urgent/emergent intervention necessary at this time. Okay for diet from surgical standpoint. Will follow with recommendations and serial exams. Thank you for let me participate in patient's care. improving d/c planning (2) Ileitis Assessment & Plan: Bilateral dependent atelectatic changes noted in the lung bases. Mild scarring or atelectasis is noted in the anterior middle lobe. Heart size within normal limits. No pericardial effusion. Coronary arterial calcifications are noted. Hepatic contour is smooth. There is some focal low attenuation along the falciform ligament most likely representing focal fatty infiltration. There is a 1.5 cm low-attenuation lesion in the hepatic dome which may represent a cyst or hemangioma although other etiologies not excluded. Noncontrast evaluation of the spleen, adrenal glands and pancreas unremarkable. There is a low-attenuation lesion in the midpole the left kidney which may represent a cyst. There is no hydronephrosis or urinary tract stone. No perinephric stranding. There is apparent thickening of the wall of the urinary bladder which may be related to underdistention. Prostate appears normal in size. Some possible low attenuation nodules are suggested in the prostate. There is no free intraperitoneal air or fluid. There is colonic diverticulosis without evidence to suggest acute diverticulitis. There is no evidence of small bowel obstruction. Appendix is normal in caliber. No periappendiceal inflammatory changes. Equivocal wall thickening of some distal ileal loops which may be related to a mild enteritis versus artifact from underdistention. No associated inflammatory stranding within the mesentery. The abdominal aorta is tortuous but normal in caliber with overall mild atherosclerotic calcification. No pathologically enlarged lymphadenopathy. There is a tiny fat-containing umbilical hernia and small fat-containing right inguinal hernia. A scar is noted in the left inguinal region which may suggest prior inguinal hernia repair. There are degenerative changes in the spine with vacuum disc phenomenon at L4-L5. No acute fractures identified. IMPRESSION: Limited exam without intravenous and oral contrast. Within these limitations: * Equivocal wall thickening of distal ileal loops which may be related to a mild enteritis or related to artifact from underdistention. Correlate clinically. * Diverticulosis without evidence of acute diverticulitis. * Bladder wall thickening possibly related to underdistention. Correlation with urinalysis recommended to exclude cystitis. * Possible low attenuation nodules in the prostate. Correlation with prostate exam and PSA recommended. * Low-attenuation lesions in the left kidney and hepatic dome which may represent cysts. Elmer Clement Sep 29, 2019 11:45
[2019-09-29 12:00] VITALS: BP 133/88
[2019-09-29] MEDS ORDERED: Albuterol/Ipratropium 3ml neb HHN SCH (15:00)
[2019-09-29] MEDS ORDERED: 1/2 NS 1000ml IV ONE (16:49)
--- NOTE | 2019-09-29 16:53 | NUR ---
NURSE NOTES: Patient discharged home via private car with family. IV D/C'd, ID band removed. Discharge protocol followed.
--- NOTE | 2019-09-29 23:30 | Discharge Summary ---
DATE OF ADMISSION: 09/25/2019 DATE OF DISCHARGE: 09/29/2019 HISTORY OF PRESENT ILLNESS: The patient is a 69-year-old male, came to the emergency room for having abdominal pain and acute COPD exacerbation. The patient had a surgery consult, GI consult. Workup is negative. The patient is physically doing better. He is still complaining of some dysuria. He is going to see outpatient urologist. His workup is negative. The patient's abdominal pain is resolved and nausea and vomiting is also improving. The patient is going to go back home. Follow up with outpatient. DISCHARGE DIAGNOSES: 1. Acute chronic obstructive pulmonary disease improved. 2. Abdominal pain, secondary to possible inguinal hernia, Surgery is on consult. PLAN: The patient is going to have appointment tomorrow with urologist. Follow up as outpatient. Edward Broderick M.D. DR: LISA JOB#: [id number] CC:
--- NOTE | 2019-10-01 10:53 | NUR ---
*-* INSURANCE *-* ALL CLINICALS HAVE BEEN FAXED TO: [facility] FUENTESM: DEJAN
== END 2019-09-29 16:50 | disposition home or self-care (01) | DRG 192 ==
LOC: EMR 11:44 → EDBEDREQ 12:33 → 4E 12:47
DX: J44.1 Chronic obstructive pulmonary disease with (acute) exacerbation (principal); I10 Essential (primary) hypertension; R10.9 Unspecified abdominal pain; N40.1 Benign prostatic hyperplasia with lower urinary tract symptoms; N39.498 Other specified urinary incontinence; K40.90 Unilateral inguinal hernia, without obstruction or gangrene, not specified as recurrent; K52.9 Noninfective gastroenteritis and colitis, unspecified; K57.90 Diverticulosis of intestine, part unspecified, without perforation or abscess without bleeding
CPT/HCPCS: 36415; 71045; 74018; 74176; 80053; 81003; 82150; 83690; 84484; 85025; 85610; 85651; 85730; 86140; 93005; 94640; 99285; J7620